=== PATIENT | female | born 2000 | race Two or more races ===

== ENCOUNTER 2023-01-21 12:42 | Emergency (ER) | payer OTHER ==
[~2023-01-21] VITALS: Ht 160 cm; Wt 87.1 kg
== END 2023-01-21 15:32 | disposition home or self-care (01) ==
LOC: ER 12:42
DX: J06.9 Acute upper respiratory infection, unspecified (principal)

== ENCOUNTER 2023-07-31 12:58 | Outpatient (CLI) | payer OTHER | END 2023-07-31 13:51 | disposition left against medical advice (07) | LOC: OBS/DEL 12:58 | PROVIDERS: ATTEND Obstetrics & Gynecology | DX: O26.893 Other specified pregnancy related conditions, third trimester (principal); Z3A.37 37 weeks gestation of pregnancy ==

== ENCOUNTER 2023-07-31 19:22 | Inpatient (IN) | payer OTHER ==
[~2023-07-31] VITALS: Ht 160 cm; Wt 94.8 kg
[2023-07-31 20:46] LABS: HEMATOCRIT 40.1 % (36.0-45.00); HEMOGLOBIN 13.7 g/dL (12.0-15.00); MEAN CELL VOLUME 91.2 fL (80.00-100.00); MEAN CORPUSCULAR HEMOGLOBIN 31.2 pg (27.00-32.0); MEAN CORPUSCULAR HGB CONC 34.2 g/dl (32.0-36.0); PLATELET COUNT 283 K/uL (150-450); RED BLOOD COUNT 4.39 M/uL (4.00-6.00); RED CELL DISTRIBUTION WIDTH 13.9 % (11.5-14.5)
[2023-07-31 20:48] LABS: URINE APPEARANCE Clear; URINE BILIRRUBIN Small (NEGATIVE); URINE BLOOD Small; URINE COLOR Dark Yellow; URINE GLUCOSE Negative (NEGATIVE); URINE LEUKOCYTE Small; URINE NITRATE Negative; URINE PROTEIN 30 (NEGATIVE)
[2023-07-31 20:49] LABS: URINE BACTERIA 1016.7 uL (0.0-1933); URINE EPITHELIAL CELLS 47.4 uL (0.0-38.8); URINE RBC 6.7 uL (0.0-20.8); URINE WBC 45.5 uL (0.0-23.2)
[2023-07-31 21:06] LABS: INR 0.95; PARTIAL THROMBOPLASTIN TIME 26.3 SECONDS (22.0-34.0)
[2023-08-01 12:25] LABS: HEMATOCRIT 39.3 % (36.0-45.00); MEAN CELL VOLUME 93.1 fL (80.00-100.00); MEAN CORPUSCULAR HEMOGLOBIN 30.8 pg (27.00-32.0); MEAN CORPUSCULAR HGB CONC 33.1 g/dl (32.0-36.0); PLATELET COUNT 283 K/uL (150-450); RED BLOOD COUNT 4.22 M/uL (4.00-6.00); RED CELL DISTRIBUTION WIDTH 13.8 % (11.5-14.5)
== END 2023-08-03 18:39 | disposition home or self-care (01) | DRG 807 ==
LOC: LDR 19:22 → OB/GYN 19:22
PROVIDERS: ADMIT Obstetrics & Gynecology; ATTEND Obstetrics & Gynecology
PROC: 10E0XZZ Delivery of Products of Conception, External Approach (ICD-10-PCS; principal; 2023-07-31)
PROC: 0UQG7ZZ Repair Vagina, Via Natural or Artificial Opening (ICD-10-PCS; 2023-07-31)
PROC: 4A1HXCZ Monitoring of Products of Conception, Cardiac Rate, External Approach (ICD-10-PCS; 2023-07-31)
DX: O71.4 Obstetric high vaginal laceration alone (principal); Z37.0 Single live birth; O99.824 Streptococcus B carrier state complicating childbirth; Z3A.37 37 weeks gestation of pregnancy; Z20.822 Contact with and (suspected) exposure to COVID-19